=== PATIENT | female | born 1990 | race Caucasian/White ===

== ENCOUNTER 2016-08-14 12:57 | Emergency (ER) | payer MEDICAID ==
[2016-08-14] MEDS ORDERED: NS 1,000 ML IV ONE (13:15)
[2016-08-14 13:28] VITALS: BP 119/72; PULSE 70; RESP 16; TEMP 99; O2SAT 98
[2016-08-14 13:44] LABS: COLOR YELLOW; LEUKOCYTE ESTERASE,URINE 1+ (NEGATIVE); NITRITE,URINE NEGATIVE (NEGATIVE)
[2016-08-14 13:56] LABS: AMORPHOUS TRACE /hpf (NONE-1+); BACTERIA 2+ /hpf (NONE SEEN); MUCUS 1+ /lpf (NONE-1+); RENAL EPITHELIAL CELLS OCCASIONAL /hpf (NONE SEEN)
[2016-08-14 14:13] LABS: % IMMATURE GRANULYOCYTES 0.2 % (0.0-1.1); ABSOLUTE IMMATURE GRANULOCYTES 0.01 10^3/uL (0.00-0.10); ADD DIFF? NO; ADD MORPH? NO; ADD SCAN? NO; ATYPICAL LYMPHOCYTE FLAG 50 (0-99); FRAGMENT RBC FLAG 0 (0-99); HEMATOCRIT 47.1 % (38.0-47.0); HEMOGLOBIN 15.7 g/dL (12.6-16.3); LEFT SHIFT FLG 0 (0-99); LIPEMIA HEMOLYSIS FLAG 80 (0-99); MEAN CELL HEMOGLOBIN 28.8 pg (27.9-34.1); MEAN CELL HEMOGLOBIN CONCENTR. 33.3 g/dL (32.4-36.7); MEAN CELL VOLUME 86.4 fL (81.5-99.8); MEAN PLATELET VOLUME 11.6 fL (8.7-11.7); PLATELET CLUMPS FLAG 0 (0-99); PLATELET COUNT 169 10^3/uL (150-400); RED BLOOD CELL COUNT 5.45 10^6/uL (4.18-5.33); RED CELL DISTRIBUTION WIDTH 14.5 % (11.5-15.2)
[2016-08-14 14:27] LABS: ANION GAP 14 mEq/L (8-16); CALCIUM 8.8 mg/dL (8.5-10.4); CARBON DIOXIDE 24 mEq/l (22-31); CHLORIDE 103 mEq/L (97-110); CREATININE 0.7 mg/dL (0.6-1.0); GLOMERULAR FILTRATION RATE > 60; GLUCOSE 86 mg/dL (70-100); POTASSIUM 3.6 mEq/L (3.5-5.2); SODIUM 141 mEq/L (134-144)
--- NOTE | 2016-08-14 14:38 | UCPHY ---
H & P Time Seen by Provider: 08/14/16 14:37 Patient Type: New HPI/ROS: Chief complaint. vomiting HPI. Patient is a 26-year-old female has been vomiting for 3 days. She also has some low back pain. She has urinary frequency. Denies fever though she has had some chills after vomiting. Abdomen feels sore from vomiting. Otherwise no chest discomfort or trouble breathing. History UTIs. No diarrhea ROS Constitutional. no fever/chills, no weakness Eyes. no problems with vision ENT. no sore throat, no nasal drainage Cardiovascular. no chest pain Respiratory. no shortness of breath, no cough Abdominal. Vomiting . Urinary frequency MS. no calf pain/swelling, no neck/back pain, no joint pain Skin. no rash Lymph. no swollen glands Neuro. no headache, no dizziness, no difficulty walking or with speech Past Medical/Surgical History: Social History: Single, nonsmoker, no alcohol Smoking Status: Never smoked Physical Exam: General Appearance: Alert well-developed female mild distress vital signs stable Eyes: Pupils equal and round no pallor or injection. ENT, Mouth: Mucous membranes are moist. Respiratory: There are no retractions, lungs are clear to auscultation. Cardiovascular: Regular rate and rhythm. Gastrointestinal: Abdomen is soft and nontender, no masses, bowel sounds normal. Neurological: Awake and alert, sensory and motor exams grossly normal. Skin: Warm and dry, no rashes. Musculoskeletal: Neck is supple nontender. Extremities symmetrical, full range of motion. Psychiatric: Patient is oriented X 3, there is no agitation. Constitutional: Initial Vital Signs Temperature (C) 37.2 C 08/14/16 13:20 Heart Rate 70 08/14/16 13:20 Respiratory Rate 16 08/14/16 13:20 Blood Pressure 119/72 08/14/16 13:20 O2 Sat (%) 98 08/14/16 13:20 O2 Delivery Mode Room Air Allergies/Adverse Reactions: No Known Allergies Allergy (Unverified 08/14/16 13:20) Home Medications: Medication Instructions Recorded Cephalexin [Keflex (*)] 500 mg PO TID #21 cap 08/14/16 Ondansetron Odt [Zofran Odt] 4 mg PO Q4PRN PRN #4 tab 08/14/16 Medical Decision Making Procedures: IV normal saline given 1 L. ED Course/Re-evaluation: Re-evaluation patient is stable. She has had no vomiting. She feels better. The patient and I discussed laboratory evaluation, treatment plan, criteria for return and importance of follow-up and further evaluation. She expresses understanding and agreement Differential Diagnosis: I considered urinary tract infection, gastroenteritis, dehydration, electrolyte abnormalities, - Data Points Laboratory Results: Laboratory Results 08/14/16 14:00 08/14/16 14:00 08/14/16 08/14/16 08/14/16 14:00 14:00 14:00 WBC 6.36 10^3/uL 10^3/uL (3.80-9.50) RBC 5.45 10^6/uL H 10^6/uL (4.18-5.33) Hgb 15.7 g/dL g/dL (12.6-16.3) Hct 47.1 % H % (38.0-47.0) MCV 86.4 fL fL (81.5-99.8) MCH 28.8 pg pg (27.9-34.1) MCHC 33.3 g/dL g/dL (32.4-36.7) RDW 14.5 % % (11.5-15.2) Plt Count 169 10^3/uL 10^3/uL (150-400) MPV 11.6 fL fL (8.7-11.7) Neut % (Auto) 73.4 % % (39.3-74.2) Lymph % (Auto) 14.0 % L % (15.0-45.0) [place] % (Auto) 11.9 % % (4.5-13.0) Eos % (Auto) 0.3 % L % (0.6-7.6) Baso % (Auto) 0.2 % L % (0.3-1.7) Nucleat RBC Rel Count 0.0 % % (0.0-0.2) Absolute Neuts (auto) 4.67 10^3/uL 10^3/uL (1.70-6.50) Absolute Lymphs (auto) 0.89 10^3/uL L 10^3/uL (1.00-3.00) Absolute Monos (auto) 0.76 10^3/uL 10^3/uL (0.30-0.80) Absolute Eos (auto) 0.02 10^3/uL L 10^3/uL (0.03-0.40) Absolute Basos (auto) 0.01 10^3/uL L 10^3/uL (0.02-0.10) Absolute Nucleated RBC 0.00 10^3/uL 10^3/uL (0-0.01) Immature Gran % 0.2 % % (0.0-1.1) Immature Gran # 0.01 10^3/uL 10^3/uL (0.00-0.10) Sodium 141 mEq/L mEq/L (134-144) Potassium 3.6 mEq/L mEq/L (3.5-5.2) Chloride 103 mEq/L mEq/L (97-110) Carbon Dioxide 24 mEq/l mEq/l (22-31) Anion Gap 14 mEq/L mEq/L (8-16) BUN 10 mg/dL mg/dL (7-23) Creatinine 0.7 mg/dL mg/dL (0.6-1.0) Estimated GFR > 60 Glucose 86 mg/dL mg/dL (70-100) Calcium 8.8 mg/dL mg/dL (8.5-10.4) Beta HCG, Qual NEGATIVE Urine Color Urine Appearance Urine pH Ur Specific [place] Urine Protein Urine Ketones Urine Blood Urine Nitrate Urine Bilirubin Urine Urobilinogen Ur Leukocyte Esterase Urine RBC Urine WBC Ur Epithelial Cells Ur Renal Epithelial Cell Amorphous Sediment Urine Bacteria Urine Mucus Ur Culture Indicated? Urine Glucose 08/14/16 13:35 WBC RBC Hgb Hct MCV MCH MCHC RDW Plt Count MPV Neut % (Auto) Lymph % (Auto) [place] % (Auto) Eos % (Auto) Baso % (Auto) Nucleat RBC Rel Count Absolute Neuts (auto) Absolute Lymphs (auto) Absolute Monos (auto) Absolute Eos (auto) Absolute Basos (auto) Absolute Nucleated RBC Immature Gran % Immature Gran # Sodium Potassium Chloride Carbon Dioxide Anion Gap BUN Creatinine Estimated GFR Glucose Calcium Beta HCG, Qual Urine Color YELLOW Urine Appearance HAZY Urine pH 6.0 (5.0-7.5) Ur Specific [place] 1.020 (1.002-1.030) Urine Protein TRACE H (NEGATIVE) Urine Ketones TRACE H (NEGATIVE) Urine Blood TRACE H (NEGATIVE) Urine Nitrate NEGATIVE (NEGATIVE) Urine Bilirubin NEGATIVE (NEGATIVE) Urine Urobilinogen 0.2 EU EU (0.2-1.0) Ur Leukocyte Esterase 1+ H (NEGATIVE) Urine RBC 3-5 /hpf H /hpf (0-3) Urine WBC 10-15 /hpf H /hpf (0-3) Ur Epithelial Cells 2+ /lpf H /lpf (NONE-1+) Ur Renal Epithelial Cell OCCASIONAL /hpf H /hpf (NONE SEEN) Amorphous Sediment TRACE /hpf /hpf (NONE-1+) Urine Bacteria 2+ /hpf H /hpf (NONE SEEN) Urine Mucus 1+ /lpf /lpf (NONE-1+) Ur Culture Indicated? INDICATED H (NI) Urine Glucose NEGATIVE (NEGATIVE) Medications Given: Discontinued Medications Sodium Chloride (Ns) 1,000 mls @ 0 mls/hr IV ONCE ONE PRN Reason: Wide Open Stop: 08/14/16 13:16 Last Admin: 08/14/16 13:20 Dose: 1,000 mls Departure - Departure Disposition: Home, Routine, Self-Care Clinical Impression: Urinary tract infection Qualifiers: Urinary tract infection type: acute cystitis Hematuria presence: without hematuria Qualified Code(s): N30.00 - Acute cystitis without hematuria Condition: Good Instructions: Urinary Tract Infection in Women (ED) Additional Instructions: Frequent, small sips fluids well nauseated. Gradual diet advancement. Zofran if needed for nausea and vomiting. Return for worsening symptoms. Recheck in 2 days if not improved Referrals: NONE *PRIMARY CARE P,. [Primary Care Provider] - As per Instructions Ryan Solis, [Doctor of Osteopathy] - 2-3 days, if not improved Prescriptions: Cephalexin [Keflex (*)] 500 mg PO TID #21 cap Ondansetron Odt [Zofran Odt] 4 mg PO Q4PRN PRN #4 tab PRN Reason: Nausea/Vomiting, Use 1st - PQRS PQRS Measurement: 134: Depression screening and followup, PRIME MD-PHQ2 (12 years and older) Over the last 2 weeks, how often have you been bothered by any of the following problems? 1. Feeling down, depressed, or hopeless? 2. Little interest or pleasure in doing things? Patient answered no to both 1 and 2 130: Documentation of medications. Reviewed all patient medications, doses, route and frequency. 226: Do you smoke? No.
== END 2016-08-14 15:15 | disposition home or self-care (01) ==
LOC: CED 12:57
DX: N30.00 Acute cystitis without hematuria (principal)
CPT/HCPCS: 80048-PO; 81003-PO; 81015-PO; 84703-PO; 85025-PO; 96360-PO; G0463-PO

== ENCOUNTER 2016-10-18 11:57 | Emergency (ER) | payer MEDICAID ==
[2016-10-18 12:11] VITALS: RESP 16; TEMP 97.9; O2SAT 97
[2016-10-18] MEDS ORDERED: IPRATROPIUM/ALBUTEROL 3 ML DEYVIAL IH ONE (12:16)
--- NOTE | 2016-10-18 12:18 | EDPHY ---
H & P Time Seen by Provider: 10/18/16 12:07 HPI/ROS: This patient describes a 3 day history of illness characterized by nasal congestion, wheezing and cough with feeling of chest congestion. She had a fever 99.9 and is worried that she might have pneumonia. She describes a chest tightness when she coughs but no chest pain or rest. She also describes onset of right lateral neck pain and mild lymph node swelling on the right side over the past 24 hours. She also has new bumps on her right forehead described as itchy in nature ROS: No high fevers or chills. Constitutional ROS is otherwise negative HEENT: She has no sinus pressure. She reports no sore throat or dysphonia. She has no ocular symptoms Pulmonary: No pleuritic pain. No dyspnea. She does have burning pain in her chest when she coughs. Cardiovascular: No lower extremity swelling. No lightheadedness or palpitations. No chest pain at rest. GI: No nausea vomiting or belly pain : No symptoms Integumentary: No rash 7 point ROS is otherwise negative. Past Medical/Surgical History: She chickenpox as a child. She is otherwise healthy. Smoking Status: Never smoked Physical Exam: Physical Exam Vital signs are normal. General: No acute distress HEENT: Nose: Clear discharge bilaterally. No sinus tenderness to percussion. Ears: External canals and tympanic membranes are clear with no erythema or abnormal findings bilaterally. Oropharynx: No erythema or exudates. No dysphonia. No drooling or stridor. Eyes: Pupils equal and react to light. Extraocular motions are intact. No conjunctival injection Neck: Supple with no meningismus. No lymphadenopathy Lungs: Faint expiratory wheeze when she coughs. Otherwise clear to auscultation bilaterally with no rales, rhonchi or wheeze. Cardiac: Regular rate and rhythm with no murmur gallop or rub Skin: The patient has a vesicular rash 4 x 3 cm in size to the right forehead in a dermatomal distribution without significant erythema. No purulence. No fluctuance. Neuro: Alert with no focal deficits noted. Initial differential diagnosis: Zoster, contact dermatitis, acute bronchitis, URI with RAD, doubt pneumonia Constitutional: Initial Vital Signs Temperature (C) 36.6 C 10/18/16 12:00 Heart Rate 81 10/18/16 12:00 Respiratory Rate 16 10/18/16 12:00 Blood Pressure 135/87 H 10/18/16 12:00 O2 Sat (%) 97 10/18/16 12:00 O2 Delivery Mode Room Air Allergies/Adverse Reactions: No Known Allergies Allergy (Verified 10/18/16 12:07) Home Medications: Medication Instructions Recorded Albuterol Hfa Anes Only [Proair 2 puffs IH Q4 PRN #1 mdi 10/18/16 Hfa Icu (*)] Azithromycin [Zithromax] 250 mg PO DAILY #6 tab 10/18/16 Valacyclovir HCl [Valtrex] 1,000 mg PO TID #21 tab 10/18/16 Amitriptyline HCl 50 mg PO BID #10 tablet 10/20/16 Hydrocodone/APAP 5/325 [[place] 1 - 2 tab PO Q4-6PRN PRN #10 tab 10/20/16 5/325 (*)] predniSONE 60 mg PO DAILY #15 tab 10/20/16 MDM/Departure - MDM Medications Given: Discontinued Medications Albuterol/Ipratropium (Duoneb) 3 ml IH EDNOW ONE Stop: 10/18/16 12:17 Last Admin: 10/18/16 12:30 Dose: 3 ml ED Course/Re-evaluation: This patient is treated with a DuoNeb with improvement in the burning discomfort when she coughs. She had increased aeration decreased wheeze thereafter. I counseled the patient that chest pain warrants an EKG and chest x-ray. Patient declines the studies this time citing need to leave due to other commitments. She understands the risk of missing potential cardiopulmonary pathology and declining the studies. She accepts this risk. Discussion: Findings most consistent with acute bronchitis and zoster. No clinical evidence of ocular involvement. - Depart Disposition: Home, Routine, Self-Care Clinical Impression: Acute bronchitis Qualifiers: Bronchitis organism: unspecified organism Qualified Code(s): J20.9 - Acute bronchitis, unspecified Zoster Qualifiers: Herpes zoster complications: without complications Qualified Code(s): B02.9 - Zoster without complications Condition: Good Instructions: Shingles (ED), Acute Bronchitis (ED) Additional Instructions: Diagnoses: 1. Acute bronchitis 2. Zoster (shingles) to forehead Plan: Humidifier Albuterol inhaler with spacer for cough, wheeze or shortness of breath Zithromax antibiotic Ibuprofen Tylenol for discomfort as needed Valtrex antiviral for the shingles. Cover the shingles when your at work around her 3-year-old. No work for the next 2 days. Return for any significant worsening despite the treatment Stand Alone Forms: Work Excuse Prescriptions: Albuterol Hfa Anes Only [Proair Hfa Icu (*)] 2 puffs IH Q4 PRN #1 mdi PRN Reason: Wheezing Azithromycin [Zithromax] 250 mg PO DAILY #6 tab Valacyclovir HCl [Valtrex] 1,000 mg PO TID #21 tab Referrals: NONE *PRIMARY CARE P,. [Primary Care Provider] - As per Instructions
[2016-10-18] MEDS ORDERED: ALBUTEROL 3 ML DEYVIAL ONE (12:31)
[2016-10-18 13:19] VITALS: BP 132/86; PULSE 83
== END 2016-10-18 13:18 | disposition home or self-care (01) ==
LOC: CED 11:57
DX: J20.9 Acute bronchitis, unspecified (principal); B02.9 Zoster without complications

== ENCOUNTER 2016-10-20 14:07 | Emergency (ER) | payer MEDICAID ==
[2016-10-20 14:17] VITALS: BP 128/78; TEMP 98.2
[2016-10-20] MEDS ORDERED: predniSONE 20 MG TAB PO ONE (14:35)
[2016-10-20] MEDS ORDERED: AMITRIPTYLINE HCL 50 MG TAB PO ONE (14:38)
[2016-10-20] MEDS ORDERED: IBUPROFEN 200 MG TAB PO ONE (14:41)
--- NOTE | 2016-10-20 14:43 | EDPHY ---
H & P Time Seen by Provider: 10/20/16 14:26 HPI/ROS: HPI Shingles getting worse. 26-year-old female by private vehicle. She was seen late yesterday evening in our emergency department. She was diagnosed with shingles/zoster involving the V1 distribution of the 5th cranial nerve on the right side of her face. She was prescribed valacyclovir. She has been taking that as well as ibuprofen. She comes back in today complaining that she has worsening pain secondary to this rash and the rash is spread to her upper and lower eyelid. She denies changes in vision or changes in hearing. ROS: Constitutional: No fever, no chills. No weakness. Eyes: No discharge. No changes in vision. ENT: No sore throat. No nasal congestion or rhinorrhea. As above Respiratory: No cough. No shortness of breath. Cardiac: No chest pain, no palpitations. Gastrointestinal: No abdominal pain, no vomiting, no diarrhea. Genitourinary: No hematuria. No dysuria or increased frequency with urination. Musculoskeletal: No back pain. No neck pain. No myalgias or arthralgias. Skin: No rashes. As above. Neurological: No headache. No focal weakness or altered sensation. Past medical history: , bronchitis/asthma, prior history of shingles. Social history: Works nights. Nonsmoker. Physical Exam: General Appearance: Alert, no distress. This patient is responding to questions appropriately and in full sentences. This patient appears well- hydrated and well-nourished. Eyes: Pupils equal and round bilaterally. The right upper and lower lids have vesicular lesions and erythematous inflammation, greater on the medial aspect of the lids. The right cornea appears clear. No photophobia. She has some mild tearing from the right eye. ENT, Mouth: Mucous membranes are moist. The pharyngeal tissues are unremarkable. No edema or swelling. No asymmetry suggestive of abscess. No erythema or exudates. No oral involvement. The right external auditory canal is unremarkable. No vesicular lesions on speculum visual is a snow of the right tympanic membrane. Respiratory: There are no retractions, lungs are clear to auscultation with good air movement bilaterally. Cardiovascular: Regular rate and rhythm. No murmur. Gastrointestinal: Abdomen is soft and nontender, no masses, bowel sounds normal. No focal tenderness at McBurney's point. No Dodson sign. Neurological: Motor sensory function is grossly intact. Cranial nerves are normal. Gait is normal. Skin: Warm and dry, herpetic vesicular rash in the cranial nerve 5 V1 distribution on the right side of her face and scalp. The rash does not involve the tip of her nose, no Phelps sign. Musculoskeletal: Neck is supple and nontender. Extremities are symmetrical. All joints range without pain or impingement. Psychiatric: No agitation. No depression. Database: EKG: Imaging: Procedures: Emergency department course: After my evaluation, the patient was given 60 mg of oral prednisone, 50 mg of amitriptyline, 600 mg of ibuprofen. She is currently on valacyclovir. Ophthalmology has been paged at 2:45 p.m.. 3:00 p.m., spoke with mixing plant operator Dr. Coleman. Case discussed in detail. Emergency department management discussed. She is in agreement with emergency department management and treatment plan. She will see this patient on Saturday morning in her office. Dr. Coleman feels the patient is safe to be discharged from the emergency department at this time. The patient was medicated as above. She will receive prescriptions for these medications. She understands the follow-up plan. Return to emergency department precautions were discussed with her. All of her questions were answered. She was discharged from the emergency department in good condition. Differential Diagnosis: The differential diagnosis on this patient includes but is not limited to herpes zoster, herpes zoster ophthalmicus. This represents a partial list of diagnoses considered. These considerations are based on history, physical exam , past history, reassessment and diagnostic testing. Smoking Status: Never smoked Constitutional: Initial Vital Signs Temperature (C) 36.8 C 10/20/16 14:11 Heart Rate 61 10/20/16 14:11 Respiratory Rate 16 10/20/16 14:11 Blood Pressure 128/78 H 10/20/16 14:11 O2 Sat (%) 97 10/20/16 14:11 O2 Delivery Mode Room Air Allergies/Adverse Reactions: No Known Allergies Allergy (Verified 10/18/16 12:07) Home Medications: Medication Instructions Recorded Albuterol Hfa Anes Only [Proair 2 puffs IH Q4 PRN #1 mdi 10/18/16 Hfa Icu (*)] Azithromycin [Zithromax] 250 mg PO DAILY #6 tab 10/18/16 Valacyclovir HCl [Valtrex] 1,000 mg PO TID #21 tab 10/18/16 Amitriptyline HCl 50 mg PO BID #10 tablet 10/20/16 Hydrocodone/APAP 5/325 [[place] 1 - 2 tab PO Q4-6PRN PRN #10 tab 10/20/16 5/325 (*)] predniSONE 60 mg PO DAILY #15 tab 10/20/16 Medical Decision Making - Data Points Medications Given: Discontinued Medications Hydrocodone Bitart/Acetaminophen ([place] 5/325mg Prepack#6) 1 btl TAKEHOME EDNOW ONE Stop: 10/20/16 15:00 Last Admin: 10/20/16 15:00 Dose: 1 btl Amitriptyline HCl (Elavil) 50 mg PO EDNOW ONE Stop: 10/20/16 14:39 Last Admin: 10/20/16 15:11 Dose: Not Given Ibuprofen (Motrin) 600 mg PO EDNOW ONE Stop: 10/20/16 14:42 Last Admin: 10/20/16 15:00 Dose: 600 mg Prednisone (Prednisone) 60 mg PO EDNOW ONE Stop: 10/20/16 14:36 Last Admin: 10/20/16 15:00 Dose: 60 mg Departure - Departure Disposition: Home, Routine, Self-Care Clinical Impression: Herpes zoster conjunctivitis, Shingles rash Condition: Good Instructions: Shingles (ED) Additional Instructions: Read and follow provided instructions. Follow-up with Ophthalmology as discussed on Saturday without fail for re- evaluation. Call the office of Dr. Coleman Saturday at 9:00 a.m.. Her office number is [phone]. She is expecting to see you at that time. I have also provided you with to referrals for primary care physicians who you should follow-up with later in the week for re-evaluation and establishment of a primary care physician relationship. Take medication as prescribed. Continue valacyclovir 1000 mg 3 times daily as prescribed. Ibuprofen dosin mg every 6 hours with meals for the next 3 days only. [place]/Percocet dosin-2 every 4-[address] not drive on this medication. Return to the emergency department for worsening or spreading rash, changes in vision, eye pain or other serious concerns. Referrals: Alea Davis MD [Medical Doctor] - As per Instructions [facility],. [Clinic] - As per Instructions Michela Coleman MD [Non Staff Provider ()] - As per Instructions Prescriptions: Amitriptyline HCl 50 mg PO BID #10 tablet Hydrocodone/APAP 5/325 [[place] 5/325 (*)] 1 - 2 tab PO Q4-6PRN PRN #10 tab PRN Reason: Pain, Moderate predniSONE 60 mg PO DAILY #15 tab
[2016-10-20] MEDS ORDERED: HYDROCOD/APAP 5/325 PREPACK#6 BTL TAKEHOME ONE (14:59)
[2016-10-20 15:34] VITALS: PULSE 60; RESP 14; O2SAT 98
== END 2016-10-20 15:10 | disposition home or self-care (01) ==
LOC: CED 14:07
DX: B02.31 Zoster conjunctivitis (principal); J45.909 Unspecified asthma, uncomplicated